=== PATIENT | male | born 1985 ===

== ENCOUNTER 2024-01-03 23:11 | Inpatient (IN) | payer OTHER, SELFPAY ==
--- NOTE | ~2024-01-03 | CT_ITS ---
EXAMINATION: CT ABDOMEN AND PELVIS WITH CONTRAST CLINICAL INFORMATION: Abdominal pain, diarrhea, fevers COMPARISON: None available. TECHNIQUE: Multidetector volumetric images were obtained from the superior aspect of the liver through the pubic symphysis following administration 85 mL of Omnipaque 350 intravenous contrast. Sagittal and coronal reformatted images were obtained on the technologist's workstation. Oral contrast: No This CT examination was performed using dose optimization techniques as appropriate, variously including the following: *Automated exposure control *Adjustment of mA and/or kV according to patient size (this includes techniques or standardized protocols for targeted exams where dose is matched to indication/reason for exam; i.e. extremities or head) *Use of iterative reconstruction technique DLP: 456 mGy-cm FINDINGS: LUNG BASES: Scattered subpleural curvilinear opacities which may reflect atelectasis. LIVER, GALLBLADDER, AND BILIARY TREE: The liver is normal in size, shape, and attenuation. No focal hepatic lesion or biliary ductal dilatation is present. Gallbladder appears partially distended and is otherwise unremarkable. PANCREAS: Unremarkable. SPLEEN: Unremarkable. ADRENAL GLANDS: Unremarkable. KIDNEYS AND URETERS: Bilateral nephrograms are symmetric. No hydronephrosis or obstructing calculus identified. BLADDER: Unremarkable. GASTROINTESTINAL TRACT: There are several mildly prominent fluid-filled loops of small bowel including the terminal ileum. Of note, the distalmost portion of the terminal ileum appears relatively collapsed and demonstrates mild mural prominence as seen on coronal image 34. This raises the possibility of mild inflammation with associated stricturing and associated developing obstruction. There is moderate distention of the colon with gas and stool. Limited evaluation for wall thickening in the sigmoid colon and rectum due to luminal collapse. The appendix is unremarkable. No free fluid or free air is seen. ABDOMINAL WALL: No significant hernia is appreciated. LYMPH NODES: Scattered mesenteric and retroperitoneal subcentimeter lymph nodes are present, without significant enlargement by size criteria. VASCULAR: Unremarkable. PELVIC VISCERA: Unremarkable. OSSEOUS STRUCTURES: Unremarkable. CT/CT abdomen pelvis w IV con IMPRESSION: 1. Several mildly prominent fluid-filled loops of small bowel, including the terminal ileum. Distalmost portion of the terminal ileum appears relatively collapsed and demonstrates mural prominence, raising the possibility of mild inflammation with associated stricturing and developing small bowel obstruction. 2. Moderate distention of the colon with gas and stool. Of note, there is limited evaluation for wall thickening in the sigmoid colon and rectum due to luminal collapse.
[2024-01-03 23:57] VITALS: BP 129/88; PULSE 75; RESP 18; TEMP 36.6; O2SAT 96; BMI 25.5
[2024-01-04] VITALS (8 sets, daily range): BP systolic 116–134; BP diastolic 73–92; PULSE 66–90; RESP 15–18; TEMP 36.1–36.6; O2SAT 95–98
--- NOTE | 2024-01-04 01:04 | ED.ABDPAIN ---
HPI - Abdominal Pain General Chief Complaint: Abdominal Pain Stated Complaint: GI Upset Time Seen by Provider: 01/04/24 00:46 Source: patient Mode of arrival: ambulatory Limitations: no limitations History of Present Illness HPI narrative: 38 yo male with no sig PMH had colonoscopy about 2 years ago for polyps, is on prep to prevent HIV but negative, notes 3 weeks ago he at a taco from [facility] and ever since has had abdominal pain and diarrhea along with fevers last Saturday. He states he feels weak and dehydrated and every time he eats he has stool. He denies bloody stools. He has no fam hx of Crohns or UC. He has not traveled or been on any antibiotics MD elicited complaint: abdominal pain Pertinent past history: none Onset (ago): week(s) (3) Pain Consistency: constant Location: diffuse Severity: severe Quality: cramping Radiation: none Migration to: no migration Exacerbating factors: eating Relieving factors: nothing Context: possible food poisoning Associated symptoms: nausea, diarrhea and chills Related Data Allergies Allergy/AdvReac Type Severity Reaction Status Date / Time No Known Allergies Allergy Verified 01/03/24 23:56 Review of Systems Review of Systems Constitutional : No Weight loss, No Fever, pos Chills ENT/Mouth : No sore throat, No Rhinorrhea Eyes: No Swelling, No Redness Cardiovascular : No Chest Pain, No SOB, NoEdema Respiratory : No Cough, No Sputum, No Wheezing Gastrointestinal : Positive Nausea, Positive Vomiting, positive Diarrhea, positive abdominal Pain, No Hematochezia, No Melena Genitourinary : No Dysuria, No Urinary Frequency, No Hematuria, No Urgency Musculoskeletal : No joint pain, No Myalgias, No Joint Swelling Skin : No Skin Lesions, No rash Neuro : No Weakness, No Numbness, No Dizziness, No Headache Psych : No Anxiety/Panic, No Depression All other systems reviewed and are negative. [facility] Past Medical History Attestation statement: The following information was validated with the patient. Source: old records reviewed Medical History (Updated 01/04/24 @ 04:03 by Svitlana Hassan DO) No pertinent past medical history Social History Social History (Updated 01/04/24 @ 01:43 by Svitlana Hassan DO) Alcohol intake: never Patient Tobacco Use Status: Never used Tobacco Smoked in Last 30 Days: No Use of substances other than those prescribed or required for medical reasons: No Advance Directives: No Advance Directives Information Provided: No Physical Exam ED Vital Signs: Vital Signs - 24 hr 01/03/24 23:57 01/04/24 02:24 01/04/24 02:57 Temperature 97.8 F 97.8 F Pulse Rate 75 78 Respiratory Rate 18 16 17 Blood Pressure 129/88 130/83 Pulse Oximetry 96 98 Oxygen Delivery Method Room Air Room Air BMI result Body Mass Index 25.5 Appearance: Alert. Oriented X3. No acute distress. Eyes: Pupils equal, round and reactive to light. ENT: Pharynx normal. Neck: Normal inspection. Neck supple. CVS: Normal heart rate and rhythm. Pulses normal. Respiratory: No respiratory distress. Breath sounds normal. Abdomen: Soft and moderate diffuse ttp no rebound or guarding Skin: Skin warm and dry. Normal skin color. Normal skin turgor. Extremities: No lower extremity edema. No calf ttp Neuro: Oriented X 3. No motor deficit. No sensory deficit. Course Course Course Narrative: improvement with IV morphine but still having pain repeat dose ordered Medical Decision Making Medical Decision Making [facility] Narrative: 38 yo male with no sig PMH here with c/o diarrhea n/v and abdominal pain for 3 weeks since eating [employer] at this time will obtain basic labs, infl markers and CT scan for colitis - he denies being immunocompromised. He has no fam hx of IBD. IVF, IV morphine for pain, CT scan for workup. Differential Diagnosis Differential Diagnoses: The differential diagnosis associated with the presentation includes colitis, constipation Admission/Observation Consideration of admission/observation: Escalation of care including admission/observation considered will admit given CT scan and abnormal findings Consult Healthcare Provider Management of the patient was discussed with: Hospitalist (will admit) and Client Resource Specialist (Dr. Coronado) Dr. Coronado recommends GI and medical admission - no indication for surgery Dr. Wilson aware will admit Will start on ceftriaxone and flagyl Lab Data [facility] Lab Attestation statement: I reviewed the patient's lab results. 01/04/24 01:03 01/04/24 01:03 Labs: Lab Results 01/04/24 Range/Units 01:03 WBC 10.5 (4.8-10.8) X10*3/uL RBC 5.30 (4.60-5.80) X10*6/uL Hgb 15.1 (14.0-18.0) g/dl Hct 42.6 (42.0-52.0) % MCV 80.4 (80.0-98.0) fL MCH 28.5 (27.0-33.0) pg MCHC 35.4 (31.0-36.0) g/dl RDW 12.5 (11.0-16.0) % Plt Count 297 (160-400) X10*3/uL MPV 9.9 (9.4-12.4) fL Immature Gran % (Auto) 0.3 (0.0-0.4) % Neut % (Auto) 67.7 (45-73) % Lymph % (Auto) 21.6 (20-40) % [place] % (Auto) 6.9 (2-11) % Eos % (Auto) 2.7 (0-4) % Baso % (Auto) 0.8 (0-2) % Lymph # (Auto) 2.3 (1.2-4.9) X10*3/uL [place] # (Auto) 0.7 (0.1-1.2) X10*3/uL Eos # (Auto) 0.3 (0.0-0.4) X10*3/uL Baso # (Auto) 0.1 (0.0-0.2) X10*3/uL Abs Immat Gran (auto) 0.03 (0.00-0.03) X10*3/uL Absolute Neuts (auto) 7.1 (2.0-8.3) x10*3/uL Absolute Nucleated RBC 0.000 (0.0-0.012) X10*3/uL Nucleated RBC % (auto) 0.0 (0.0-0.2) /100WBC ESR 12 (0-15) MM/HR Sodium 141 (135-145) mmol/L Potassium 3.4 (3.3-5.1) mmol/L Chloride 104 (96-108) mmol/L Carbon Dioxide 27 (22-29) mmol/L Anion Gap 13 (12-20) BUN 16 (9-16) mg/dL Creatinine 0.80 (0.5-1.4) mg/dL Estim Creat Clear Calc 105.8 Estimated GFR > 60 Random Glucose 89 (60-115) mg/dL Calcium 9.4 (8.4-10.2) mg/dL Total Bilirubin 0.4 (0.0-1.0) mg/dL AST 15 (5-37) U/L ALT 16 (0-40) U/L Alkaline Phosphatase 74 (39-117) U/L C-Reactive Protein 2.32 H (< or = 0.50) mg/dL Total Protein 7.8 (6.5-8.0) g/dL Albumin 4.4 (3.5-5.0) g/dL Lipase 53 (8-78) U/L Independent Interpretation I performed an independent interpretation of an: CT Scan (inflammatory findings and partial start of bowel obstruction) Radiology Impression Discussion of test interpretation with radiology: I have reviewed the radiologist's reading. Medications Administered Discontinued Medications Generic Name Dose Route Start Last Admin Trade Name Freq PRN Reason Stop Dose Admin Sodium Chloride 1,000 mls @ 999 mls/hr 01/04/24 01:15 01/04/24 02:25 Ns IV 01/04/24 02:15 999 mls/hr .Q1H1M AZALEA Administration Iohexol 85 ml 01/04/24 02:46 01/04/24 02:46 Iohexol 350 Mg/Ml 100 Ml Infus..Btl IV 01/04/24 02:47 85 ml ONCE ONE Administration Morphine Sulfate 4 mg 01/04/24 01:11 01/04/24 02:24 Morphine Sulfate 4 Mg/Ml Cartridge IVPUSH 01/04/24 01:12 4 mg ONCE ONE Administration Protocol Ondansetron HCl 4 mg 01/04/24 01:11 01/04/24 02:24 Ondansetron Hcl 4 Mg/2 Ml Vial IVPUSH 01/04/24 01:12 4 mg ONCE ONE Administration Critical Care Time Critical Care Time Critical Care Time: Yes Total Critical Care Time: 45 Attestation: repeat IV morphine for pain with some improvement, IVF, medical consult I attest to this time spent taking care of the patient Discharge Plan Discharge Clinical Impression: Ileitis Abdominal pain Qualifiers: Abdominal location: generalized Qualified Code(s): R10.84 - Generalized abdominal pain Patient Disposition: Admitted As Inpatient
[2024-01-04 01:07] LABS: MANUAL DIFF FLAG NO
[2024-01-04 01:13] LABS: Basophils Absolute Auto 0.1 X10*3/uL (0.0-0.2); Basophils Percent Auto 0.8 % (0-2); Eosinophils Absolute Auto 0.3 X10*3/uL (0.0-0.4); Eosinophils Percent Auto 2.7 % (0-4); Hematocrit 42.6 % (42.0-52.0); Hemoglobin 15.1 g/dl (14.0-18.0); Imm Gran Abs Auto 0.03 X10*3/uL (0.00-0.03); Imm Gran Pct Auto 0.3 % (0.0-0.4); Lymphocytes Absolute Auto 2.3 X10*3/uL (1.2-4.9); Lymphocytes Percent Auto 21.6 % (20-40); Mean Corpuscular HGB Conc 35.4 g/dl (31.0-36.0); Mean Corpuscular Hemoglobin 28.5 pg (27.0-33.0); Mean Corpuscular Volume 80.4 fL (80.0-98.0); Mean Platelet Volume 9.9 fL (9.4-12.4); Monocytes Absolute Auto 0.7 X10*3/uL (0.1-1.2); Monocytes Percent Auto 6.9 % (2-11); Neutrophils Absolute Auto 7.1 x10*3/uL (2.0-8.3); Neutrophils Percent Auto 67.7 % (45-73); Platelet Count 297 X10*3/uL (160-400); Red Cell Distribution Width 12.5 % (11.0-16.0); White Blood Count 10.5 X10*3/uL (4.8-10.8)
[2024-01-04 01:26] LABS: Alanine Aminotransferase 16 U/L (0-40); Albumin Level 4.4 g/dL (3.5-5.0); Alkaline Phosphatase 74 U/L (39-117); Anion Gap 13 (12-20); Aspartate Amino Transferase 15 U/L (5-37); Bilirubin Total 0.4 mg/dL (0.0-1.0); Blood Urea Nitrogen 16 mg/dL (9-16); C Reactive Protein 2.32 mg/dL (< or = 0.50); Calcium 9.4 mg/dL (8.4-10.2); Carbon Dioxide 27 mmol/L (22-29); Chloride 104 mmol/L (96-108); Creatinine Clr Calc Pharmacy 105.8; Estimated Glomerular Filt Rate > 60; Glucose Random 89 mg/dL (60-115); Lipase 53 U/L (8-78); Potassium 3.4 mmol/L (3.3-5.1); Sodium 141 mmol/L (135-145); Total Protein 7.8 g/dL (6.5-8.0)
[2024-01-04 01:54] LABS: Erythrocyte Sedimentation Rate 12 MM/HR (0-15)
[2024-01-04] MEDS: Morphine Sulfate 4 MG/ML CARTRIDGE IVPUSH ×2 (02:24→04:25)
[2024-01-04] MEDS: ondansetron HCL 4 MG/2 ML VIAL IVPUSH (02:24)
[2024-01-04] MEDS: 0.9 % Sodium Chloride 1,000 ML 999 ML IV (02:25)
[2024-01-04] MEDS: iohexoL 350 MG/ML 100 ML INFUS..BTL 85 ML IV (02:46)
[2024-01-04] MEDS: Ketorolac Tromethamine 15 MG/ML VIAL IVPUSH (04:25)
[2024-01-04] MEDS: 0.9 % Sodium Chloride 1,000 ML 125 ML IVCONT ×3 (04:30→22:47)
[2024-01-04] MEDS: cefTRIAXone sodium 1 GM in 0.9 % Sodium Chloride 50 ML IV (04:36)
--- NOTE | 2024-01-04 04:40 | PM.IMHP ---
History of Present Illness Date of Service: 01/04/24 Chief Complaint: Abdominal pain and diarrhea This is a 38-year-old male with pertinent history of asthma not on home oxygen who presents to the emergency department evaluation of abdominal discomfort and diarrhea. Patient states his symptoms started 3 weeks prior to presentation. He had a taco from [employer] and his symptoms started since. Patient has been having upper/left-sided abdominal discomfort, nonradiating, constant and without any relieving factors. He is also having nonbloody diarrhea every time he eats that has been ongoing for the last 3 weeks. No history of similar symptoms in the past. No family history of ulcerative colitis or Crohn's disease. Did have 1 episode of nausea and nonbloody emesis 1 day prior to presentation. Patient states that about a week ago he felt febrile, did not take his temperature. No chest discomfort, palpitations, shortness of breath, changes in urinary habits. In the emergency department, imaging with mild inflammation with stricturing in the terminal ileum Review of Systems Constitutional: Constitutional: Reports lethargy, Reports malaise and Reports weakness Cardiovascular: Cardiovascular: Reports no additional cardiovascular complaints Respiratory: Respiratory: Reports no additional respiratory complaints Gastrointestinal: Gastrointestinal: Reports abdominal pain, Reports diarrhea, Reports nausea and Reports vomiting Genitourinary: Genitourinary: Reports no additional male genitourinary complaints Neurologic: Reports weakness [facility] Medical History Asthma Pertinent family history: No family history of Crohn's disease or ulcerative colitis Social History Alcohol intake: never Patient Tobacco Use Status: Never used Tobacco Smoked in Last 30 Days: No Use of substances other than those prescribed or required for medical reasons: No Advance Directives: No Advance Directives Information Provided: No Meds Allergies Allergy/AdvReac Type Severity Reaction Status Date / Time No Known Allergies Allergy Verified 01/03/24 23:56 Active Medications: Current Medications Acetaminophen (Acetaminophen 325 Mg Tablet) 650 mg PO Q6H PRN PRN Reason: Pain, Mild (Pain Scale 1-3) Enoxaparin Sodium (Enoxaparin Sodium 40 Mg/0.4 Ml Syringe) 40 mg SUBCUT Q24H AZALEA Sodium Chloride (Ns) 1,000 mls @ 125 mls/hr IVCONT .Q8H [facility] Last Admin: 01/04/24 04:30 Dose: 125 mls/hr Ceftriaxone Sodium 1 gm/ (Sodium Chloride) 50 mls @ 100 mls/hr IV ONCE ONE Stop: 01/04/24 04:48 Last Admin: 01/04/24 04:36 Dose: 100 mls/hr Metronidazole (Flagyl) 500 mg in 100 mls @ 100 mls/hr IV ONCE ONE Stop: 01/04/24 05:18 Melatonin (Melatonin 3 Mg Tablet) 6 mg PO BEDTIME PRN PRN Reason: Insomnia Morphine Sulfate (Morphine Sulfate 4 Mg/Ml Cartridge) 2 mg IVPUSH Q4H PRN; Protocol PRN Reason: Pain, Severe (Pain Scale 7-10) Ondansetron HCl (Ondansetron Hcl 4 Mg/2 Ml Vial) 4 mg IVPUSH Q8H PRN PRN Reason: Nausea and Vomiting Sodium Chloride (0.9 % Sodium Chloride Flush 3 Ml Syringe) 3 ml IVFLUSH QSHIFT [facility] Physical Exam Vital Signs and Narrative: Vital Signs: Last Vital Signs Temp 97.8 F 01/04/24 02:57 Pulse 78 01/04/24 02:57 Resp 16 01/04/24 04:25 BP 130/83 01/04/24 02:57 Pulse Ox 98 01/04/24 02:57 O2 Del Method Room Air 01/04/24 02:57 BMI result Body Mass Index 25.5 Middle-aged male lying in bed in mild distress Neck supple, no JVD Regular rate and rhythm, S1-S2 heard Regular breath sounds bilaterally, no wheezing or crackles appreciated Abdomen with generalized tenderness, no guarding, no rigidity, no rebound tenderness Patient is awake, alert and oriented to self, place, time and person ; no focal motor deficit Psych: Normal mood No pedal edema Results Labs 01/04/24 01:03 01/04/24 01:03 Labs: Laboratory Results - last 24 hr 01/04/24 01:03 MCV 80.4 MCH 28.5 MCHC 35.4 RDW 12.5 Plt Count 297 MPV 9.9 Immature Gran % (Auto) 0.3 Neut % (Auto) 67.7 Lymph % (Auto) 21.6 [place] % (Auto) 6.9 Eos % (Auto) 2.7 Baso % (Auto) 0.8 Lymph # (Auto) 2.3 [place] # (Auto) 0.7 Eos # (Auto) 0.3 Baso # (Auto) 0.1 Abs Immat Gran (auto) 0.03 Absolute Neuts (auto) 7.1 Absolute Nucleated RBC 0.000 Nucleated RBC % (auto) 0.0 ESR 12 Anion Gap 13 Estim Creat Clear Calc 105.8 Estimated GFR > 60 Random Glucose 89 Calcium 9.4 Total Bilirubin 0.4 AST 15 ALT 16 Alkaline Phosphatase 74 C-Reactive Protein 2.32 H Total Protein 7.8 Albumin 4.4 Lipase 53 Imaging Radiologist's Impressions: Impressions Abdomen/Pelvis CT 01/04/24 02:50 IMPRESSION: 1. Several mildly prominent fluid-filled loops of small bowel, including the terminal ileum. Distalmost portion of the terminal ileum appears relatively collapsed and demonstrates mural prominence, raising the possibility of mild inflammation with associated stricturing and developing small bowel obstruction. 2. Moderate distention of the colon with gas and stool. Of note, there is limited evaluation for wall thickening in the sigmoid colon and rectum due to luminal collapse. Assessment and Plan (1) Abdominal pain: Qualifiers: Abdominal location: generalized Qualified Code(s): R10.84 - Generalized abdominal pain Status: Acute (2) Diarrhea: Status: Acute Plan This is a 38-year-old male with pertinent history of asthma not on home oxygen who presents to the emergency department evaluation of abdominal discomfort and diarrhea. #. Subacute diarrhea with abdominal pain: Imaging with mild inflammation and stricturing of the terminal ileum. General surgery was consulted from the ER, no concern for obstruction. Stool studies pending. Clear liquid diet and advance as tolerated. Consulting Gastroenterology, appreciate assistance. Patient received ceftriaxone and Flagyl in the ER. He has not febrile and is without leukocytosis, defer further antibiotics. IV opioids p.r.n. for analgesia #. Asthma: No exacerbation during admission. Continue home inhalers Med rec pending DVT prophylaxis: Lovenox Full code Admit as inpatient and will require two night minimum hospital stay for evaluation of subacute diarrhea and abdominal pain (as above), which is not possible in a lesser acute setting. Specialist consult pending Quality Stroke Does the patient have a stroke diagnosis?: No VTE Prior VTE?: No VTE Risk Level:: Medical - moderate - high VTE Device Contraindication: Treatment Not Indicated VTE Drug Contraindication: N/A - Med Ordered
[2024-01-04 05:08] LABS: MANUAL DIFF FLAG NO
[2024-01-04 05:09] LABS: Basophils Absolute Auto 0.1 X10*3/uL (0.0-0.2); Basophils Percent Auto 0.5 % (0-2); Eosinophils Absolute Auto 0.2 X10*3/uL (0.0-0.4); Eosinophils Percent Auto 1.9 % (0-4); Hematocrit 38.7 % (42.0-52.0); Hemoglobin 13.7 g/dl (14.0-18.0); Imm Gran Abs Auto 0.04 X10*3/uL (0.00-0.03); Imm Gran Pct Auto 0.4 % (0.0-0.4); Lymphocytes Absolute Auto 1.9 X10*3/uL (1.2-4.9); Lymphocytes Percent Auto 20.5 % (20-40); Mean Corpuscular HGB Conc 35.4 g/dl (31.0-36.0); Mean Corpuscular Hemoglobin 28.5 pg (27.0-33.0); Mean Corpuscular Volume 80.5 fL (80.0-98.0); Mean Platelet Volume 9.9 fL (9.4-12.4); Monocytes Absolute Auto 0.6 X10*3/uL (0.1-1.2); Monocytes Percent Auto 6.8 % (2-11); Neutrophils Absolute Auto 6.6 x10*3/uL (2.0-8.3); Neutrophils Percent Auto 69.9 % (45-73); Platelet Count 239 X10*3/uL (160-400); Red Blood Count 4.81 X10*6/uL (4.60-5.80); Red Cell Distribution Width 12.4 % (11.0-16.0); White Blood Count 9.5 X10*3/uL (4.8-10.8)
[2024-01-04] MEDS: metroNIDAZOLE/NS 500 MG/100 ML PIGGYBACK 100 MG IV (05:15)
[2024-01-04 05:26] LABS: Anion Gap 13 (12-20); Blood Urea Nitrogen 14 mg/dL (9-16); Calcium 8.3 mg/dL (8.4-10.2); Carbon Dioxide 24 mmol/L (22-29); Chloride 107 mmol/L (96-108); Creatinine Clr Calc Pharmacy 105.8; Estimated Glomerular Filt Rate > 60; Glucose Random 94 mg/dL (60-115); Potassium 3.6 mmol/L (3.3-5.1); Sodium 140 mmol/L (135-145)
--- NOTE | 2024-01-04 05:54 | PC.NURSE ---
Pt A&Ox3, reports 7/10 upper ABD pain, vomiting and diarrhea x 3 weeks after eating [employer]. Pt reports last BM was [employer], no vomiting while here. ABD tender to touch to LUQ, + bowel sounds x 4. Pt ambulated independently with steady gait to BR. Pt tolerating PO fluids. Reports effectiveness to meds given per JAN. Report complete. Pt will be transported to room 380. Pt aware of plan.
--- NOTE | 2024-01-04 06:05 | PC.NURSE ---
Med rec done, Pt able to verbalize home meds.
--- NOTE | 2024-01-04 07:17 | PHA.MEDREC ---
Pharmacy Consult ? Medication Reconciliation Pharmacy has completed the medication reconciliation.
--- NOTE | 2024-01-04 08:58 | P.PNIM_ITS ---
Subjective Subjective Date of Service: 01/04/24 Interval History: about the same as yesterday Physical Exam 2 Vital Signs: Vital Signs: Last Vital Signs Temp 97 F 01/04/24 07:54 Pulse 67 01/04/24 07:54 Resp 16 01/04/24 07:54 BP 121/73 01/04/24 07:54 Pulse Ox 98 01/04/24 07:54 O2 Del Method Room Air 01/04/24 07:54 BMI result Body Mass Index 25.5 General: AO X 3, no acute distress Resp: CTA bilateral, no accessory muscles used CVS: S1,S2,RRR GI: soft, rlq tender, non distended Neuro: motor grossly intact, alert Psych: appropriate affect, appropriate insight Objective Data Active Medications Acetaminophen (Acetaminophen 325 Mg Tablet) 650 mg PO Q6H PRN PRN Reason: Pain, Mild (Pain Scale 1-3) Enoxaparin Sodium (Enoxaparin Sodium 40 Mg/0.4 Ml Syringe) 40 mg SUBCUT Q24H [facility] Last Admin: 01/04/24 05:22 Dose: Not Given Documented By: SUYAPA Non-Admin Reason: Patient Refused Fluticasone/Vilanterol (Fluticasone/Vilanterol 100/25 Blst.W.Dev) 1 puff INHALE RDAILY [facility] Sodium Chloride (Ns) 1,000 mls @ 125 mls/hr IVCONT .Q8H [facility] Last Admin: 01/04/24 04:30 Dose: 125 mls/hr Documented By: SUYAPA Melatonin (Melatonin 3 Mg Tablet) 6 mg PO BEDTIME PRN PRN Reason: Insomnia Morphine Sulfate (Morphine Sulfate 4 Mg/Ml Cartridge) 2 mg IVPUSH Q4H PRN; Protocol PRN Reason: Pain, Severe (Pain Scale 7-10) Ondansetron HCl (Ondansetron Hcl 4 Mg/2 Ml Vial) 4 mg IVPUSH Q8H PRN PRN Reason: Nausea and Vomiting Sodium Chloride (0.9 % Sodium Chloride Flush 3 Ml Syringe) 3 ml IVFLUSH QSHIFT [facility] Last Admin: 01/04/24 08:54 Dose: Not Given Documented By: TRESSA Non-Admin Reason: IV Running Labs 01/04/24 05:03 01/04/24 05:03 Labs: Laboratory Results - last 24 hr 01/04/24 01/04/24 01:03 05:03 MCV 80.4 80.5 MCH 28.5 28.5 MCHC 35.4 35.4 RDW 12.5 12.4 Plt Count 297 239 MPV 9.9 9.9 Immature Gran % (Auto) 0.3 0.4 Neut % (Auto) 67.7 69.9 Lymph % (Auto) 21.6 20.5 Person % (Auto) 6.9 6.8 Eos % (Auto) 2.7 1.9 Baso % (Auto) 0.8 0.5 Lymph # (Auto) 2.3 1.9 Person # (Auto) 0.7 0.6 Eos # (Auto) 0.3 0.2 Baso # (Auto) 0.1 0.1 Abs Immat Gran (auto) 0.03 0.04 H Absolute Neuts (auto) 7.1 6.6 Absolute Nucleated RBC 0.000 0.000 Nucleated RBC % (auto) 0.0 0.0 ESR 12 Anion Gap 13 13 Estim Creat Clear Calc 105.8 105.8 Estimated GFR > 60 > 60 Random Glucose 89 94 Calcium 9.4 8.3 L D Total Bilirubin 0.4 AST 15 ALT 16 Alkaline Phosphatase 74 C-Reactive Protein 2.32 H Total Protein 7.8 Albumin 4.4 Lipase 53 Assessment and Plan (1) Ileitis: Status: Acute Plan 38M PMH mild persistent asthma presented with abdominal pain, found to have ileitis acute ileitis infections vs inflammatory ivf, clears follow up stool pcr pain control gi eval mild persistent asthma stable continue laba/ics dvt prophylaxis - Lovenox full code reason for continued hospitalization:not tolerating solids Quality Stroke Does the patient have a stroke diagnosis?: No VTE Prior VTE?: No VTE Risk Level:: Medical - moderate - high VTE Device Contraindication: Treatment Not Indicated VTE Drug Contraindication: N/A - Med Ordered
--- NOTE | 2024-01-04 09:38 | P.CNGI_ITS ---
History of Present Illness Data of Consult Service Date: 01/04/24 Requesting physician: Kumar Wilson Primary Care Provider: Unknown Physician HPI Reason for consult: Abd pain, diarrhea This is a 38-year-old gentleman with no significant past medical history who is in the hospital for abdominal pain, nausea, vomiting and diarrhea. Patient reports that around 3 weeks ago he started having abdominal pain and diarrhea which she attributed to having food from outside. This dissipated within a few days only to recur again 2 weeks ago and since then has progressively worsened. He reports diffuse abdominal cramping and discomfort that is associated with at least 5-6 watery bowel movements in a day associated with incontinence and urgency. No blood in stool. Does have nighttime symptoms. In the last 2 days has also noticed tenesmus. A day before admission, he also started noticing more nausea and has not been able to take anything p.o. due to vomiting since yesterday evening. He has not been able to pass any bowel movement for a day and a half and also has not passed any gas since coming to the hospital. No fam hx of IBD or CRC. Does not smoke or drink. NO sick contacts. Vitals have been stable, he has remained afebrile. Labs are significant for normal leukocytosis. Chem 7 with normal kidney function. Elevated CRP to 2.3. Stool studies are pending. He underwent a CT abdomen and pelvis with IV contrast that shows distal terminal ileum wall thickening with proximal dilation. Review of Systems 2 Review of Systems: Yes all other systems are reviewed and are negative PMFSH Past Medical History Medical History Asthma Social History Social History Household Members: None Housing: Apartment Alcohol intake: never Patient Tobacco Use Status: Never used Tobacco Meds Allergies Allergy/AdvReac Type Severity Reaction Status Date / Time No Known Allergies Allergy Verified 01/03/24 23:56 Active Medications: Current Medications Acetaminophen (Acetaminophen 325 Mg Tablet) 650 mg PO Q6H PRN PRN Reason: Pain, Mild (Pain Scale 1-3) Enoxaparin Sodium (Enoxaparin Sodium 40 Mg/0.4 Ml Syringe) 40 mg SUBCUT Q24H [facility] Last Admin: 01/04/24 05:22 Dose: Not Given Fluticasone/Vilanterol (Fluticasone/Vilanterol 100/25 Blst.W.Dev) 1 puff INHALE RDAILY [facility] Sodium Chloride (Ns) 1,000 mls @ 125 mls/hr IVCONT .Q8H [facility] Last Admin: 01/04/24 04:30 Dose: 125 mls/hr Melatonin (Melatonin 3 Mg Tablet) 6 mg PO BEDTIME PRN PRN Reason: Insomnia Morphine Sulfate (Morphine Sulfate 4 Mg/Ml Cartridge) 2 mg IVPUSH Q4H PRN; Protocol PRN Reason: Pain, Severe (Pain Scale 7-10) Ondansetron HCl (Ondansetron Hcl 4 Mg/2 Ml Vial) 4 mg IVPUSH Q8H PRN PRN Reason: Nausea and Vomiting Sodium Chloride (0.9 % Sodium Chloride Flush 3 Ml Syringe) 3 ml IVFLUSH QSHIFT [facility] Last Admin: 01/04/24 08:54 Dose: Not Given Home Medications Medication Instructions Recorded Confirmed Last Taken Type fluticasone 250 mcg-salmeterol 50 1 ea inhalation BID 01/04/24 01/04/24 Unknown History mcg/dose blistr powdr for inhalation (Advair Diskus) Physical Exam 2 Vital Signs: Vital Signs: Last Vital Signs Temp 97 F 01/04/24 07:54 Pulse 67 01/04/24 07:54 Resp 16 01/04/24 07:54 BP 121/73 01/04/24 07:54 Pulse Ox 98 01/04/24 07:54 O2 Del Method Room Air 01/04/24 07:54 BMI result Body Mass Index 25.5 Gen appear: Sick appearing HEENT: nonicteric, no cervical lymphadenopathy Chest: CTA CVS: Regular S1/S2 Abd: soft, diffusely tender with guarding, mildly distended Ext: no peripheral edema Neuro: A/Ox3, noted to move all extremities spontaneously Psych: interacting appropriately Results Labs 01/04/24 05:03 01/04/24 05:03 Labs: Short CBC 01/04/24 01/04/24 Range/Units 01:03 05:03 WBC 10.5 9.5 (4.8-10.8) X10*3/uL Hgb 15.1 13.7 L (14.0-18.0) g/dl Hct 42.6 38.7 L (42.0-52.0) % Plt Count 297 239 (160-400) X10*3/uL BMP 01/04/24 01/04/24 01:03 05:03 Sodium 141 140 Potassium 3.4 3.6 Chloride 104 107 Carbon Dioxide 27 24 BUN 16 14 Creatinine 0.80 0.80 Calcium 9.4 8.3 L D Liver Function 01/04/24 Range/Units 01:03 Total Bilirubin 0.4 (0.0-1.0) mg/dL AST 15 (5-37) U/L ALT 16 (0-40) U/L Alkaline Phosphatase 74 (39-117) U/L Albumin 4.4 (3.5-5.0) g/dL Assessment and Plan (1) Abdominal pain: Qualifiers: Abdominal location: generalized Qualified Code(s): R10.84 - Generalized abdominal pain Status: Acute (2) Ileitis: Status: Acute (3) Diarrhea: Status: Acute Plan Ddx include infectious enterocolitis such as Yersenia which in fact does have a subacute illness course, inflammatory such as crohns, low suspicion for neoplastic stricture given age. Does not take NSAIDs to suspect nsaid related stricturing. Recommendations: -Resume Abx - would favor fluoroquinolone based antibiotic regimen to also empirically cover Yersinia -IV fluids -bowel rest -stool studies and IBD panel ordered -hold off steroids for now Procedures Date of Service Date of Service: 01/04/24
[2024-01-04] MEDS: Fluticasone/Vilanterol 100/25 BLST.W.DEV 1 PUFF INHALE (11:23)
--- NOTE | 2024-01-04 13:34 | MHC.CM.PN ---
PT REPORTS HE LIVES ALONE AND IS INDEPENDENT WITH CARE PT HAS NO DME AND NO SERVICES, HE WORKS AND DRIVES PT DECLINES TO COMPLETE A HCP PCP AT [facility], ? CARLOS LANIER DCP: HOME NO SERVICES VIA SELF TRANSPORT
[2024-01-04] MEDS: Morphine Sulfate 4 MG/ML CARTRIDGE 2 MG IVPUSH (15:10)
[2024-01-04] MEDS: levoFLOXacin 500 MG TABLET PO (15:10)
[2024-01-05 04:00] VITALS: BP 120/71; PULSE 80; RESP 18; TEMP 36.7; O2SAT 96
[2024-01-05] MEDS: 0.9 % Sodium Chloride 1,000 ML 125 ML IVCONT (06:17)
[2024-01-05 07:09] LABS: Hematocrit 38.6 % (42.0-52.0); Hemoglobin 13.2 g/dl (14.0-18.0); Mean Corpuscular HGB Conc 34.2 g/dl (31.0-36.0); Mean Corpuscular Hemoglobin 28.1 pg (27.0-33.0); Mean Corpuscular Volume 82.3 fL (80.0-98.0); Mean Platelet Volume 10.2 fL (9.4-12.4); Platelet Count 241 X10*3/uL (160-400); Red Blood Count 4.69 X10*6/uL (4.60-5.80); Red Cell Distribution Width 12.6 % (11.0-16.0); White Blood Count 5.4 X10*3/uL (4.8-10.8)
[2024-01-05 07:19] LABS: Anion Gap 13 (12-20); Blood Urea Nitrogen 7 mg/dL (9-16); Carbon Dioxide 24 mmol/L (22-29); Chloride 109 mmol/L (96-108); Estimated Glomerular Filt Rate > 60; Glucose Fasting 83 mg/dL (60-99); Potassium 3.5 mmol/L (3.3-5.1); Sodium 142 mmol/L (135-145)
[2024-01-05] MEDS: Fluticasone/Vilanterol 100/25 BLST.W.DEV 1 PUFF INHALE (07:41)
[2024-01-05 07:42] VITALS: PULSE 80; RESP 18; O2SAT 96
[2024-01-05 07:45] VITALS: BP 119/71; PULSE 83; RESP 18; TEMP 36.6; O2SAT 95
--- NOTE | 2024-01-05 08:32 | P.PNGI_ITS ---
Subjective Subjective Date of Service: 01/05/24 Interval History: Seen at bedside. Doing better today. Reports significant improvement in his abdominal pain and now passing gas. Was able to tolerate his diet well. Critical Care Time (minutes): 0 Physical Exam 2 Vital Signs: Vital Signs: Last Vital Signs Temp 97.9 F 01/05/24 07:45 Pulse 83 01/05/24 07:45 Resp 18 01/05/24 07:45 BP 119/71 01/05/24 07:45 Pulse Ox 95 01/05/24 07:45 O2 Del Method Room Air 01/05/24 07:45 BMI result Body Mass Index 25.5 Gen appear: No acute distress Abd: Soft, very mildly tender, no guarding Objective Data Labs 01/05/24 05:57 01/05/24 05:57 Labs: Laboratory Results - last 24 hr 01/05/24 05:57 WBC 5.4 RBC 4.69 Hgb 13.2 L Hct 38.6 L MCV 82.3 MCH 28.1 MCHC 34.2 RDW 12.6 Plt Count 241 MPV 10.2 Absolute Nucleated RBC 0.000 Nucleated RBC % (auto) 0.0 Sodium 142 Potassium 3.5 Chloride 109 H Carbon Dioxide 24 Anion Gap 13 BUN 7 L Creatinine 0.90 Estim Creat Clear Calc 94.0 Estimated GFR > 60 Fasting Glucose 83 Calcium 8.0 L Procedures Date of Service Date of Service: 01/05/24 Progress Note: A&P Assessment and plan (1) Ileitis: Status: Acute (2) Abdominal pain: Status: Acute Plan Has had significant improvement with Abx alone - infectious vs inflammatory ileitis. - Cont to hold off steroids for now - Cont levaquin for total 7 days - can be transitioned to cipro on discharge as less risk of C Diff. - Will need outpatient colo in a few weeks - to be done as inpatient if clinical course does not progress as expected - Ok to advance diet as tolerated - Will arrange outpatient follow up Time Spent With Patient Time: Total time managing care of this patient today ____ minutes. Quality Stroke Does the patient have a stroke diagnosis?: No VTE Prior VTE?: No VTE Risk Level:: Medical - moderate - high VTE Device Contraindication: Treatment Not Indicated VTE Drug Contraindication: N/A - Med Ordered
--- NOTE | 2024-01-05 09:03 | P.PNIM_ITS ---
Subjective Subjective Date of Service: 01/05/24 Interval History: improving, wants to try solids Physical Exam 2 Vital Signs: Vital Signs: Last Vital Signs Temp 97.9 F 01/05/24 07:45 Pulse 83 01/05/24 07:45 Resp 18 01/05/24 07:45 BP 119/71 01/05/24 07:45 Pulse Ox 95 01/05/24 07:45 O2 Del Method Room Air 01/05/24 07:45 BMI result Body Mass Index 25.5 General: AO X 3, no acute distress Resp: CTA bilateral, no accessory muscles used CVS: S1,S2,RRR GI: soft, non tender, non distended Neuro: motor grossly intact, alert Psych: appropriate affect, appropriate insight Objective Data Active Medications Acetaminophen (Acetaminophen 325 Mg Tablet) 650 mg PO Q6H PRN PRN Reason: Pain, Mild (Pain Scale 1-3) Enoxaparin Sodium (Enoxaparin Sodium 40 Mg/0.4 Ml Syringe) 40 mg SUBCUT Q24H [facility] Last Admin: 01/05/24 06:06 Dose: Not Given Documented By: MAGDA Non-Admin Reason: Patient Refused Fluticasone/Vilanterol (Fluticasone/Vilanterol 100/25 Blst.W.Dev) 1 puff INHALE RDAILY [facility] Last Admin: 01/05/24 07:41 Dose: 1 puff Documented By: IRWNI Levofloxacin (Levofloxacin 500 Mg Tablet) 500 mg PO Q24H [facility] Last Admin: 01/04/24 15:10 Dose: 500 mg Documented By: TRESSA Melatonin (Melatonin 3 Mg Tablet) 6 mg PO BEDTIME PRN PRN Reason: Insomnia Morphine Sulfate (Morphine Sulfate 4 Mg/Ml Cartridge) 2 mg IVPUSH Q4H PRN; Protocol PRN Reason: Pain, Severe (Pain Scale 7-10) Last Admin: 01/04/24 15:10 Dose: 2 mg Documented By: TRESSA Ondansetron HCl (Ondansetron Hcl 4 Mg/2 Ml Vial) 4 mg IVPUSH Q8H PRN PRN Reason: Nausea and Vomiting Sodium Chloride (0.9 % Sodium Chloride Flush 3 Ml Syringe) 3 ml IVFLUSH QSHIFT [facility] Last Admin: 01/05/24 07:15 Dose: Not Given Documented By: NEGIN Non-Admin Reason: See Note Labs 01/05/24 05:57 01/05/24 05:57 Labs: Laboratory Results - last 24 hr 01/05/24 05:57 MCV 82.3 MCH 28.1 MCHC 34.2 RDW 12.6 Plt Count 241 MPV 10.2 Absolute Nucleated RBC 0.000 Nucleated RBC % (auto) 0.0 Anion Gap 13 Estim Creat Clear Calc 94.0 Estimated GFR > 60 Fasting Glucose 83 Calcium 8.0 L Assessment and Plan (1) Ileitis: Status: Acute Plan 38M PMH mild persistent asthma presented with abdominal pain, found to have ileitis acute ileitis infections vs inflammatory advance to solids follow up stool pcr pain control gi appreciated mild persistent asthma stable continue laba/ics dvt prophylaxis - Lovenox full code reason for continued hospitalization: awaiting tolerance of solids Quality Stroke Does the patient have a stroke diagnosis?: No VTE Prior VTE?: No VTE Risk Level:: Medical - moderate - high VTE Device Contraindication: Treatment Not Indicated VTE Drug Contraindication: N/A - Med Ordered
--- NOTE | 2024-01-05 12:07 | PM.DS ---
DS: Providers Provider Date of Service: 01/05/24 Date of admission: 01/04/24 04:37 Primary care physician: Unknown Physician Consults: 01/04/24 04:39 Consult to Gastroenterology Routine Consulting Provider: Sharon Marie Reason for consultation: subacute diarrhea DS: Diagnosis Discharge Diagnosis (1) Ileitis: Status: Acute DS: Summary Hospital Course Hospital Course: from initial hpi: 38-year-old male with pertinent history of asthma not on home oxygen who presents to the emergency department evaluation of abdominal discomfort and diarrhea. Patient states his symptoms started 3 weeks prior to presentation. He had a taco from [employer] and his symptoms started since. Patient has been having upper/left-sided abdominal discomfort, nonradiating, constant and without any relieving factors. He is also having nonbloody diarrhea every time he eats that has been ongoing for the last 3 weeks. No history of similar symptoms in the past. No family history of ulcerative colitis or Crohn's disease. Did have 1 episode of nausea and nonbloody emesis 1 day prior to presentation. Patient states that about a week ago he felt febrile, did not take his temperature. No chest discomfort, palpitations, shortness of breath, changes in urinary habits. In the emergency department, imaging with mild inflammation with stricturing in the terminal ileum hospital course: Patient was admitted for acute ileitis. Infectious versus inflammatory. He was treated with ceftriaxone and then transitioned to levofloxacin. Diarrhea resolved and was unable to obtain stool samples. Inflammatory workup was taken and is pending. Was seen by GI who recommended antibiotics and outpatient follow-up for colonoscopy. Patient's pain resolved and was able to tolerate solid food. For mild persistent asthma he remained stable on his inhaler. Time Attestation Discharge coordination time: Greater than 30 minutes Quality: Safe Use of Opioids Does Pt have an Active Cancer Diagnosis on the Problem List?: No Quality: Stroke Does the patient have a stroke diagnosis?: No Physical Exam Vital Signs: Vital Signs: Last Vital Signs Temp 97.9 F 01/05/24 07:45 Pulse 83 01/05/24 07:45 Resp 18 01/05/24 07:45 BP 119/71 01/05/24 07:45 Pulse Ox 95 01/05/24 07:45 O2 Del Method Room Air 01/05/24 07:45 BMI result Body Mass Index 25.5 General: AO X 3, no acute distress Resp: CTA bilateral, no accessory muscles used CVS: S1,S2,RRR GI: soft, non tender, non distended Neuro: motor grossly intact, alert Psych: appropriate affect, appropriate insight DS: Data Data Completed and Pending Labs on day of discharge: Laboratory Results - last 24 hr 01/05/24 05:57 WBC 5.4 RBC 4.69 Hgb 13.2 L Hct 38.6 L MCV 82.3 MCH 28.1 MCHC 34.2 RDW 12.6 Plt Count 241 MPV 10.2 Absolute Nucleated RBC 0.000 Nucleated RBC % (auto) 0.0 Sodium 142 Potassium 3.5 Chloride 109 H Carbon Dioxide 24 Anion Gap 13 BUN 7 L Creatinine 0.90 Estim Creat Clear Calc 94.0 Estimated GFR > 60 Fasting Glucose 83 Calcium 8.0 L Discharge Plan Discharge Anticipated Discharge Date/Time: 01/05/24 12:06 Patient Disposition: Home, Self-Care Discharge Diagnosis: ileitis Referrals: Physician,Unknown J [Primary Care Provider] - 1 Week Sharon Marie MD [Physician] - 1 Week Discharge Medications: New levofloxacin 500 mg Tablet 500 mg PO Q24H Qty: 5 0RF Continued fluticasone propion-salmeterol [Advair Diskus] 250-50 mcg/dose blister with device 1 ea inhalation BID Discharge Orders: Discharge Order (Routine); Ordered 01/05/24 Ordered By: Bird Rivas Diet: Advance to usual diet Activity on Discharge: As tolerated Stand Alone Forms: Patient Portal Discharge page Care Plan Goals: recovery Health Concerns: ileitis Plan of Treatment: 5 more days levaquin, follow up with gi Assessment: see above
--- NOTE | 2024-01-05 12:12 | MHC.CM.PN ---
PT WILL DC HOME TODAY VIA SELF TRANSPORT NO SERVICES INDICATED
== END 2024-01-05 13:03 | disposition home or self-care (01) | DRG 392 ==
LOC: HO.ED 01-04 04:03 → HO.EDOVER 01-04 04:43 → HO.S3 01-04 05:32
PROVIDERS: Internal Medicine; Admitting Provider Student in an Organized Health Care Education/Training Program; Emergency Provider Emergency Medicine; Visit Provider Internal Medicine
DX: K52.9 Noninfective gastroenteritis and colitis, unspecified (principal); J45.30 Mild persistent asthma, uncomplicated; Z79.51 Long term (current) use of inhaled steroids
CPT/HCPCS: 36415; 74177; 80048; 80053; 81479; 82397; 83520; 83690; 85025; 85027; 85652; 86140; 88346; 88350; 94640; 99285; J0696; J1836; J1885; J2270; J2405; Q9967

== ENCOUNTER → 2024-01-04 04:37 | Outpatient (BNV) | payer OTHER, SELFPAY | PROVIDERS: Admitting Provider Student in an Organized Health Care Education/Training Program; Emergency Provider Emergency Medicine; Visit Provider Student in an Organized Health Care Education/Training Program | DX: K52.9 Noninfective gastroenteritis and colitis, unspecified (principal) | CPT/HCPCS: 99222; 99239; 99499 ==

== ENCOUNTER → 2024-01-04 04:37 | Outpatient (BNV) | payer OTHER, SELFPAY | PROVIDERS: Admitting Provider Student in an Organized Health Care Education/Training Program; Emergency Provider Emergency Medicine; Visit Provider Internal Medicine | DX: K52.9 Noninfective gastroenteritis and colitis, unspecified (principal) | CPT/HCPCS: 99222; 99233 ==

== ENCOUNTER 2024-01-18 18:36 | Emergency (ER) | payer OTHER, SELFPAY ==
--- NOTE | 2024-01-18 19:03 | ED_ITS ---
HPI - Abdominal Pain General Chief Complaint: Abdominal Pain Stated Complaint: abd pain Time Seen by Provider: 01/18/24 20:42 Source: patient Mode of arrival: ambulatory History of Present Illness HPI narrative: 38-year-old male presents with epigastric discomfort without associated fever, chills, patient was treated 2 weeks ago for similar symptoms and was on a course of antibiotics. Patient states he has been having diarrhea. Patient also endorses that he has continued to eat fried food. Related Data Home Medications Medication Instructions Recorded Confirmed fluticasone 250 mcg-salmeterol 50 1 ea inhalation BID 01/04/24 01/04/24 mcg/dose blistr powdr for inhalation (Advair Diskus) Previous Rx's Medication Instructions Recorded levofloxacin 500 mg tablet 500 mg PO Q24H #5 tabs 01/05/24 omeprazole 40 mg capsule,delayed 40 mg PO DAILY #30 caps 01/18/24 release Allergies Allergy/AdvReac Type Severity Reaction Status Date / Time No Known Allergies Allergy Verified 01/18/24 19:13 Review of Systems Review of Systems Pertinent positives and negatives as stated in HPI PMFSH Past Medical History Source: nursing notes reviewed Medical History Asthma Social History Social History Household Members: None Housing: Apartment Alcohol intake: never Patient Tobacco Use Status: Never used Tobacco Advance Directives: No Advance Directives Information Provided: No service: No Physical Exam ED Vital Signs: Vital Signs - 24 hr 01/18/24 19:12 Temperature 97.6 F Pulse Rate 91 Respiratory Rate 16 Blood Pressure 128/95 H Pulse Oximetry 96 Oxygen Delivery Method Room Air BMI result Body Mass Index 26.0 VITAL SIGNS: Reviewed. GENERAL: Well developed, well nourished, in no acute distress. HEAD: Normocephalic/atraumatic EYES: PERRLA, EOMI LUNGS: Normal breath sounds. No adventitious sounds or accessory muscle use. SpO2<96> CARDIOVASCULAR: Regular rate and rhythm without noted murmurs ABDOMEN: Soft, mild discomfort on palpation in the epigastric area, non- distended with bowel sounds. MUSCULOSKELETAL: No tenderness, deformities, or effusions noted on gross inspection. EXTREMITIES: No cyanosis, clubbing or edema. SKIN: Inspection of the skin reveals no rashes NEUROLOGIC: Alert and oriented x 4. Strength and sensation to light touch were grossly intact x 4. Course Course Course Narrative: RME: 38 year-old M w/ PMHx asthma, ileitis, presenting to the ED c/o upper abdominal pain since last night (same pain as ileitis) described as sharp, intermittent. Patient recently discharged from our facility on 01/05 for ileitis. Admits to diarrhea. denies N/V, urinary sx Labs, UA ordered Full HPI, ROS and PE to be performed by primary ED provider. Medical Decision Making Medical Decision Making MDM Narrative: 38-year-old male with history and clinical presentation, DDX: Gastritis, GERD, pancreatitis, medication side effect from antibiotics I reviewed all investigations and hematologic indices are grossly within normal limits without any derangements. Chemistry indices are grossly within normal limits without derangements, lipase is within normal limits. Urinalysis is negative for UTI or hematuria. My interpretation is patient is suffering from gastritis and possible side effects from course of antibiotics. He was provided with a GI cocktail and Carafate with good improvement. He is otherwise discharged with a prescription for omeprazole. Differential Diagnosis Differential Diagnoses: The differential diagnosis associated with the presentation includes Please see the discussion above Admission/Observation Consideration of admission/observation: Escalation of care including admission/observation considered Please see the discussion above Lab Data [facility] Lab Attestation statement: I reviewed the patient's lab results. Please see the discussion above 01/18/24 19:23 01/18/24 19:23 Labs: Lab Results 01/18/24 Range/Units 19:23 WBC 5.9 (4.8-10.8) X10*3/uL RBC 5.30 (4.60-5.80) X10*6/uL Hgb 15.4 (14.0-18.0) g/dl Hct 44.3 (42.0-52.0) % MCV 83.6 (80.0-98.0) fL MCH 29.1 (27.0-33.0) pg MCHC 34.8 (31.0-36.0) g/dl RDW 13.1 (11.0-16.0) % Plt Count 286 (160-400) X10*3/uL MPV 10.2 (9.4-12.4) fL Immature Gran % (Auto) 0.3 (0.0-0.4) % Neut % (Auto) 65.5 (45-73) % Lymph % (Auto) 22.8 (20-40) % [facility] % (Auto) 8.6 (2-11) % Eos % (Auto) 2.0 (0-4) % Baso % (Auto) 0.8 (0-2) % Lymph # (Auto) 1.4 (1.2-4.9) X10*3/uL [facility] # (Auto) 0.5 (0.1-1.2) X10*3/uL Eos # (Auto) 0.1 (0.0-0.4) X10*3/uL Baso # (Auto) 0.1 (0.0-0.2) X10*3/uL Abs Immat Gran (auto) 0.02 (0.00-0.03) X10*3/uL Absolute Neuts (auto) 3.9 (2.0-8.3) x10*3/uL Absolute Nucleated RBC 0.000 (0.0-0.012) X10*3/uL Nucleated RBC % (auto) 0.0 (0.0-0.2) /100WBC Sodium 140 (135-145) mmol/L Potassium 3.7 (3.3-5.1) mmol/L Chloride 105 (96-108) mmol/L Carbon Dioxide 26 (22-29) mmol/L Anion Gap 13 (12-20) BUN 15 (9-16) mg/dL Creatinine 0.81 (0.5-1.4) mg/dL Estim Creat Clear Calc 104.5 Estimated GFR > 60 Random Glucose 91 (60-115) mg/dL Calcium 9.4 D (8.4-10.2) mg/dL Magnesium 2.0 (1.6-2.6) mg/dL Total Bilirubin 0.5 (0.0-1.0) mg/dL Direct Bilirubin 0.2 (0.0-0.5) mg/dL AST 30 (5-37) U/L ALT 35 (0-40) U/L Alkaline Phosphatase 65 (39-117) U/L Total Protein 7.5 (6.5-8.0) g/dL Albumin 4.2 (3.5-5.0) g/dL Lipase 30 (8-78) U/L Urine Color Yellow Urine Appearance Clear Urine pH 6.5 (5.0-9.0) Ur Specific [place] 1.020 (1.005-1.025) Urine Protein Negative (Neg-Trace) mg/dL Urine Glucose (UA) Negative (Negative) mg/dL Urine Ketones Negative (Negative) mg/dL Urine Blood Negative (Negative) Urine Nitrite Negative (Negative) Ur Leukocyte Esterase Negative (Negative) External Record Review External record reviewed: Outpatient record, Prior outpatient labs and Prior outpatient radiology Chronic Conditions Patient?s care impacted by: Other Asthma Medications Administered Discontinued Medications Generic Name Dose Route Start Last Admin Trade Name Freq PRN Reason Stop Dose Admin Al Hydroxide/Mg Hydroxide 30 ml 01/18/24 21:21 01/18/24 21:34 Magnesium Hydrox/Alum Hydrox 30 Ml Oral.Susp PO 01/18/24 21:22 30 ml ONCE ONE Administration Lidocaine HCl 10 ml 01/18/24 21:21 01/18/24 21:34 Lidocaine Hcl Viscous 2 % 15 Ml Solution MUCOUS MEM 01/18/24 21:22 10 ml ONCE ONE Administration Sucralfate 1 gm 01/18/24 21:21 01/18/24 21:34 Sucralfate Oral Suspension 1 Gm/10 Ml Oral.Susp PO 01/18/24 21:22 1 gm ONCE ONE Administration Critical Care Time Critical Care Time Critical Care Time: Yes Total Critical Care Time: 30 Attestation: I personally attest to this time spent taking care of the patient. Discharge Plan Discharge Clinical Impression: Gastritis Patient Disposition: Home, Self-Care Instructions: Gastritis (ED), Diet for Stomach Ulcers and Gastritis (ED), Nutrition Tips for Relief of Diarrhea (ED) Additional Instructions: 1. Resume all home medications as prescribed. 2. Please follow-up with your primary care doctor on Saturday/Saturday morning. Return to the ER for any worsening symptoms. Prescriptions: New omeprazole 40 mg capsule,delayed release(DR/EC) 40 mg PO DAILY Qty: 30 0RF No Action fluticasone propion-salmeterol [Advair Diskus] 250-50 mcg/dose blister with device 1 ea inhalation BID levofloxacin 500 mg Tablet 500 mg PO Q24H Qty: 5 0RF
[2024-01-18 19:12] VITALS: BP 128/95; PULSE 91; RESP 16; TEMP 36.4; O2SAT 96; BMI 26.0
[2024-01-18 19:42] LABS: MANUAL DIFF FLAG NO
[2024-01-18 19:54] LABS: Basophils Absolute Auto 0.1 X10*3/uL (0.0-0.2); Basophils Percent Auto 0.8 % (0-2); Eosinophils Absolute Auto 0.1 X10*3/uL (0.0-0.4); Hematocrit 44.3 % (42.0-52.0); Hemoglobin 15.4 g/dl (14.0-18.0); Imm Gran Abs Auto 0.02 X10*3/uL (0.00-0.03); Imm Gran Pct Auto 0.3 % (0.0-0.4); Lymphocytes Absolute Auto 1.4 X10*3/uL (1.2-4.9); Lymphocytes Percent Auto 22.8 % (20-40); Mean Corpuscular HGB Conc 34.8 g/dl (31.0-36.0); Mean Corpuscular Hemoglobin 29.1 pg (27.0-33.0); Mean Corpuscular Volume 83.6 fL (80.0-98.0); Mean Platelet Volume 10.2 fL (9.4-12.4); Monocytes Absolute Auto 0.5 X10*3/uL (0.1-1.2); Monocytes Percent Auto 8.6 % (2-11); Neutrophils Absolute Auto 3.9 x10*3/uL (2.0-8.3); Neutrophils Percent Auto 65.5 % (45-73); Platelet Count 286 X10*3/uL (160-400); Red Cell Distribution Width 13.1 % (11.0-16.0); White Blood Count 5.9 X10*3/uL (4.8-10.8)
[2024-01-18 19:55] LABS: Appearance Urine Clear; Color Urine Yellow; Glucose Urine UA Negative (Negative); Leukocyte Esterase Urine Negative (Negative); Nitrite Urine Negative (Negative); PH 6.5 (5.0-9.0); Urine Blood Negative (Negative); Urine Ketones Negative (Negative); Urine Protein Negative (Neg-Trace)
[2024-01-18 19:58] LABS: Alanine Aminotransferase 35 U/L (0-40); Albumin Level 4.2 g/dL (3.5-5.0); Alkaline Phosphatase 65 U/L (39-117); Anion Gap 13 (12-20); Aspartate Amino Transferase 30 U/L (5-37); Bilirubin Direct 0.2 mg/dL (0.0-0.5); Bilirubin Total 0.5 mg/dL (0.0-1.0); Blood Urea Nitrogen 15 mg/dL (9-16); Calcium 9.4 mg/dL (8.4-10.2); Carbon Dioxide 26 mmol/L (22-29); Chloride 105 mmol/L (96-108); Creatinine Clr Calc Pharmacy 104.5; Estimated Glomerular Filt Rate > 60; Glucose Random 91 mg/dL (60-115); Lipase 30 U/L (8-78); Potassium 3.7 mmol/L (3.3-5.1); Sodium 140 mmol/L (135-145); Total Protein 7.5 g/dL (6.5-8.0)
[2024-01-18] MEDS: Sucralfate Oral Suspension 1 GM/10 ML ORAL.SUSP PO (21:34)
[2024-01-18] MEDS: Magnesium Hydrox/Alum Hydrox 30 ML ORAL.SUSP PO (21:34)
[2024-01-18] MEDS: Lidocaine HCl Viscous 2 % 15 ML SOLUTION 10 ML MUCOUS MEM (21:34)
[2024-01-18 23:17] VITALS: BP 115/84; PULSE 85; RESP 18; O2SAT 94
== END 2024-01-18 23:24 | disposition home or self-care (01) ==
PROVIDERS: Physician Assistant; Emergency Provider Student in an Organized Health Care Education/Training Program
DX: K29.70 Gastritis, unspecified, without bleeding (principal)
CPT/HCPCS: 36415; 80048; 80076; 81003; 83690; 83735; 85025; 99283; 99284

== ENCOUNTER 2024-02-26 08:12 | Outpatient (REF) | payer OTHER, SELFPAY ==
--- NOTE | ~2024-02-26 | CT_ITS ---
EXAMINATION: CT ENTEROGRAPHY ABDOMEN AND PELVIS WITH CONTRAST CLINICAL INFORMATION: Noninfected gastroenteritis and colitis. COMPARISON: 01/04/2024 TECHNIQUE: Study performed with oral VoLumen (1500 mL) and 500 mL of water to distend the abdomen. The patient was injected with 85 mL Omnipaque 350 intravenous contrast which was administered without adverse effect. Coronal and sagittal reformatted images were obtained at the technologist's workstation. This CT examination was performed using dose optimization techniques as appropriate, variously including the following: *Automated exposure control *Adjustment of mA and/or kV according to patient size (this includes techniques or standardized protocols for targeted exams where dose is matched to indication/reason for exam; i.e. extremities or head) *Use of iterative reconstruction technique DLP: 340 mGy-cm FINDINGS: GASTROINTESTINAL FINDINGS: Stomach: Satisfactorily distended and unremarkable in appearance. Small intestine: There is wall thickening of the small bowel loops in the left midabdomen with mesenteric hyperemia and subcentimeter mesenteric lymph nodes. Large intestine: There is moderate fecal retention in the colon. No focal wall thickening. The appendix is within normal limits. No perirectal stranding. Additional findings: No abdominal abscess or fistulous tract demonstrated. ABDOMINAL AND PELVIC CT FINDINGS: Liver, gallbladder, biliary tract: The liver is normal in size and contour. No focal hepatic lesion. No biliary ductal dilatation. The gallbladder is unremarkable. Pancreas: No ductal dilatation. Spleen: Not enlarged. Adrenal glands and kidneys: No adrenal mass. The kidneys are symmetric in size and enhancement. No hydronephrosis or perinephric fluid collection. Ureters and bladder: Unremarkable. Lymphovascular structures: No bulky lymphadenopathy. Normal caliber abdominal aorta. Pelvic viscera: Unremarkable. Bones: No destructive bone lesions. Lung bases: No pleural or pericardial effusion. CT/CT enterography IMPRESSION: Wall thickening of the small bowel loops in the left midabdomen with mesenteric hyperemia and subcentimeter mesenteric lymph nodes. Infectious and inflammatory etiologies should be considered.
[2024-02-26] MEDS: iohexoL 350 MG/ML 100 ML INFUS..BTL 85 ML IV (10:09)
[2024-02-26] MEDS: Sorbitol/Mannit/Xanth Imaging 500 ML LIQUID 1500 ML PO (10:09)
== END 2024-02-26 08:13 | disposition home or self-care (01) ==
LOC: HO.CT 08:12
PROVIDERS: PCP Pediatrics; Visit Provider Internal Medicine
DX: K52.9 Noninfective gastroenteritis and colitis, unspecified (principal)
CPT/HCPCS: 74177; Q9967

== ENCOUNTER 2024-03-06 13:23 | Outpatient (AMB) | payer OTHER, SELFPAY ==
--- NOTE | 2024-03-06 13:24 | A.OFFVIS_ITS ---
Intake Vital Signs 03/06/24 13:25 Height 5 ft 4 in Weight 147 lb 11.355 oz BMI 25.4 BP 119/80 Blood Pressure Location Lt brachial Position Sitting Pulse 77 Intake Visit Reasons: Follow up CT scan results Intake Note: Reza presents in the office as a follow up CT scan results. CC: He states that he is here for results today - he still does not feel the greatest and he went back to the ED and he was diagnosed with gastritis. Allergies No Known Allergies Allergy (Verified 03/06/24 13:25) HPI HPI Comments History of Present Illness Details This is a 38-year-old gentleman with hx of anal ASCUS who is here for follow up after hospitalisation 01/2024 for acute ileitis Recap: Admitted to the hospital in early January for sudden onset abdominal pain and diarrhea after having food from outside. CT abdomen pelvis IV contrast showed distal terminal ileum wall thickening with proximal dilation. Had a significant improvement with antibiotic therapy alone. [facility] IBD panel was negative. Clinical assessment was consistent with acute infectious enteritis. Patient was advised to have a CT enterography done as outpatient to ensure the small bowel changes have resolved. No fam hx of IBD or CRC. Does not smoke or drink. No sick contacts. 03/06/24: CT enterography completed last week and results as below. Reports central abd discomfort rayne after eating which is assoc with loose stools 3/4 day. No blood in stool. Has urgency and tenesmus. Has lost 20 lbs since admission. No night time sx. CT enterography: Stomach: Satisfactorily distended and unremarkable in appearance. Small intestine: There is wall thickening of the small bowel loops in the left midabdomen with mesenteric hyperemia and subcentimeter mesenteric lymph nodes. Large intestine: There is moderate fecal retention in the colon. No focal wall thickening. The appendix is within normal limits. No perirectal stranding. Additional findings: No abdominal abscess or fistulous tract demonstrated. [facility] Medical History Asthma Family History (Updated 03/06/24 @ 13:28 by LAVELLE Corcoran) Maternal Grandfather Throat cancer Maternal Aunt Cervical cancer Social History Household Members: None Housing: Apartment Alcohol intake: never Patient Tobacco Use Status: Never used Tobacco service: No Review of Systems Const All systems reviewed & are unremarkable except as noted in HPI and below Physical Exam Vital Signs: Last Vital Signs Pulse 77 03/06/24 13:25 BP 119/80 03/06/24 13:25 BMI result Body Mass Index 25.4 Assessment & Plan Assessment & Plan (1) Ileitis: Code(s): K52.9 - Noninfective gastroenteritis and colitis, unspecified (2) Abdominal pain: Code(s): R10.9 - Unspecified abdominal pain Qualifiers: Abdominal location: generalized Qualified Code(s): R10.84 - Generalized abdominal pain (3) Chronic diarrhea: Code(s): K52.9 - Noninfective gastroenteritis and colitis, unspecified (4) Weight loss: Code(s): R63.4 - Abnormal weight loss Plan Constellation of symptoms outlined above suspicious for underlying Crohn's disease, especially given persistent thickened small bowel loops on enterography that was performed at least 8 weeks after his hospital admission. Reviewed the despite a negative [facility] IBD panel, will need luminal evaluation for diagnosis and management. Plan: -push enteroscopy and colonoscopy to be set up in the next few weeks -split PEG prep instructions reviewed and handout given -labs ordered to check for IBD, as well as celiac, hyperthyroidism. -in addition, T spot and hep serologies ordered in anticipation of biologic if needed -of note, patient also sees Dr. Daly at [facility] due to history of anal ascus. Reviewed to KEEP his upcoming appt as a colo does not replace the high def anoscopy exam. Follow-up after endoscopy Orders: Orders Calprotectin, Fecal Today K52.9 - Noninfective gastroenteritis and colitis, unspecified Immunoglobulin A Today K52.9 - Noninfective gastroenteritis and colitis, unspecified Hepatitis A IgG Today K52.9 - Noninfective gastroenteritis and colitis, unspecified Hepatitis B Surface Antibody Today K52.9 - Noninfective gastroenteritis and colitis, unspecified Hepatitis B Surface Antigen Today K52.9 - Noninfective gastroenteritis and colitis, unspecified C Reactive Protein Today K52.9 - Noninfective gastroenteritis and colitis, unspecified TSH reflex Free T4 Today K52.9 - Noninfective gastroenteritis and colitis, unspecified Transglutaminase IgA Today K52.9 - Noninfective gastroenteritis and colitis, unspecified Hepatitis B Core Antibody Today K52.9 - Noninfective gastroenteritis and colitis, unspecified Hepatitis C Antibody Today K52.9 - Noninfective gastroenteritis and colitis, unspecified T Spot TB Today K52.9 - Noninfective gastroenteritis and colitis, unspecified Medications: New peg 3350-electrolytes 236-22.74-6.74 -5.86 gram (Golytely) as per split prep instructions, until fecal effluent is clear 240 mL PO Q10M 4,000 mL 0RF colonoscopy Coding Level of Care Code Est Pt Level 4 (56346) Diagnoses Ileitis K52.9 Abdominal pain R10.84 Abdominal location: generalized Chronic diarrhea K52.9 Weight loss R63.4
[2024-03-06 13:25] VITALS: BP 119/80; PULSE 77; BMI 25.4
== END 2024-03-06 14:17 | disposition home or self-care (01) ==
PROVIDERS: Visit Provider Internal Medicine
DX: K52.9 Noninfective gastroenteritis and colitis, unspecified (principal); R10.84 Generalized abdominal pain; R63.4 Abnormal weight loss
CPT/HCPCS: 99214

== ENCOUNTER 2024-03-06 13:23 | Outpatient (REF) | payer OTHER, SELFPAY ==
[2024-03-06 16:40] LABS: C Reactive Protein < 0.10 mg/dL (< or = 0.50)
[2024-03-06 16:51] LABS: TSH reflex Free T4 0.95 uIU/mL (0.32-4.0)
[2024-03-07 10:10] LABS: Hepatitis A Antibody IgG Nonreactive (Nonreactive); ~Hepatitis A Antibody IgG 0.36 S/CO (0.00-0.99)
[2024-03-07 10:13] LABS: HBS Num1 256.86 mIU/mL (0-7.99); HBc Num1 0.05 S/CO (0.00-0.79); HBsAGNum1 0.38 S/CO (0.00-0.99); Hepatitis B Core Antibody Nonreactive (Nonreactive); Hepatitis B Surface Antigen Negative (Negative); ~HepC Num1 0.23 S/CO (0.00-0.79); ~Hepatitis B Surface Antibody REACTIVE (Nonreactive); ~Hepatitis C Antibody Nonreactive (Nonreactive)
[2024-03-08 21:23] LABS: TS Negative Control Passed; TS Panel A 2; TS Panel B 0; TS Positive Control Passed; TSpotTB Negative (Negative)
[2024-03-09 18:34] LABS: Immunoglobulin A 212 mg/dL (47-310)
[2024-03-10 22:03] LABS: Transglutaminase IgA <1.0 U/mL
== END 2024-03-06 13:24 | disposition home or self-care (01) ==
LOC: HO.LAB 13:23
PROVIDERS: PCP Pediatrics; Visit Provider Internal Medicine
DX: K52.9 Noninfective gastroenteritis and colitis, unspecified (principal); R10.84 Generalized abdominal pain; R63.4 Abnormal weight loss
CPT/HCPCS: 36415; 82784; 84443; 86140; 86364; 86481; 86704; 86706; 86708; 86803; 87340

== ENCOUNTER 2024-03-12 10:59 | Day surgery (SDC) | payer OTHER, SELFPAY ==
--- NOTE | 2024-03-11 10:03 | P.CONAN_ITS ---
Documented by User: Mariel Gonzalez NP 03/11/24 10:03 HPI - Anesthesia Eval Consult details Narrative: 38yo M for Colonoscopy, push enteroscopy [facility] Active Problems Active Problems: All Active Problems Weight loss (Acute) Chronic diarrhea (Acute) Asthma (Acute) Ileitis (Acute) Abdominal pain (Acute) Past Medical History Medical History Asthma Family History Family History (Updated 03/06/24 @ 13:28 by LAVELLE Corcoran) Maternal Grandfather Throat cancer Maternal Aunt Cervical cancer Social History Social History Household Members: None Housing: Apartment Alcohol intake: never Patient Tobacco Use Status: Never used Tobacco Are you DNR?: No Advance Directives: No Advance Directives Information Provided: Yes Nutrition Risks: No Nutritional Risk service: No Meds Allergies Allergy/AdvReac Type Severity Reaction Status Date / Time No Known Allergies Allergy Verified 03/12/24 11:59 Home Medications ?Medication ?Instructions ?Recorded ?Confirmed ?Last Taken ?Type fluticasone 250 mcg-salmeterol 50 1 ea inhalation BID 01/04/24 03/12/24 Unknown History mcg/dose blistr powdr for inhalation (Advair Diskus) Assessment and Plan Assessment Anesthesia Assessment: Chart Reviewed Documented by User: Vadim Perez MD 03/12/24 12:03 [facility] Past Medical History Medical History Asthma Family History Family History (Updated 03/06/24 @ 13:28 by LAVELLE Corcoran) Maternal Grandfather Throat cancer Maternal Aunt Cervical cancer Family history of problems with anesthesia: No Surgical History History of Problems with Anesthesia: No Social History Social History Household Members: None Housing: Apartment Alcohol intake: never Patient Tobacco Use Status: Never used Tobacco Are you DNR?: No Advance Directives: No Advance Directives Information Provided: Yes Nutrition Risks: No Nutritional Risk service: No Meds Allergies Allergy/AdvReac Type Severity Reaction Status Date / Time No Known Allergies Allergy Verified 03/12/24 11:59 Home Medications ?Medication ?Instructions ?Recorded ?Confirmed ?Last Taken ?Type fluticasone 250 mcg-salmeterol 50 1 ea inhalation BID 01/04/24 03/12/24 Unknown History mcg/dose blistr powdr for inhalation (Advair Diskus) Exam Airway Mallampati Class: I TM Dist: >3cm Neck ROM: Full Loose/Missing/Broken Teeth: No Heart: rrr Lungs: cta Assessment and Plan Assessment Anesthesia Assessment: Anesthesia Plan Discussed Final Anesthetic Review Family History of Problems with Anesthesia: No History of Problems with Anesthesia: No NPO: Yes ASA Class: I Final Preanesthetic Review: No Changes in Pt Med Stat, Meds/Allgs Chart Reviewed, Consent Obtained/Reviewed and Anes Risks/Benef Reviewed Patient Risk: Low Procedure Risk: Intermediate Anesthetic Plan Anesthetic Plan: MAC: Disposition: Standard PACU
[2024-03-12] MEDS: Lactated Ringers 1,000 ML 100 ML IVCONT (12:11)
[2024-03-12 12:23] VITALS: BP 136/90; PULSE 78; RESP 18; TEMP 36.7; O2SAT 97; BMI 25.1
--- NOTE | 2024-03-12 12:58 | P.HPSUR_ITS ---
Pre-Procedural Eval Section A - 24 Hr Update-Section A only Date of Service: 03/12/24 Section B - Complete if H&P > 30 days Chief Complaint: Noninfective gastroenteritis and colitis, unspecif Relevant Family History (Specify if Yes): No Relevant Social History: None Present Medications: see Short Stay Collaborative assessment Medical History: Significant History (asthma ) History of Previous Operations: No relevant previous surgery Allergies: Allergies Allergy/AdvReac Type Severity Reaction Status Date / Time No Known Allergies Allergy Verified 03/12/24 11:59 Review of Systems Sugical H&P ROS: Negative: Constitution, Cardiovascular, Respiratory, Neuro logical, Psychiatric, Hem-Onc, Allergic/Immunologic, Gastrointestinal, Genitourinary, Musculoskeletal, Integumentary, Endocrine and Eyes/Ears/Nose/Throat Exam Surgical H&P Exam: Normal: HEENT, Normal: Heart, Normal: Lungs, Normal: Extremities, Normal: Abdomen, Normal: Skin and Normal: Neurological Plan Diagnosis/Plan: Unchanged I have reviewed the history and physical and performed a pertinent physical examination on my patient. No changes have occurred unless specified. Time Spent With Patient Time: Total time managing care of this patient today ____ minutes.
--- NOTE | 2024-03-12 13:48 | W.PM.OPN ---
Operative Note Operative Note Date of Service: 03/12/24 Narrative: Operative Information Procedure Description: EGD, Colonoscopy Indication: abn imaging, enteritis Anesthesia: MAC FLEXIBLE TRANSORAL UPPER GASTROINTESTINAL ENDOSCOPY AND COLONOSCOPY PROCEDURE NOTE UPPER ENDOSCOPY Consent: Indications for the procedure and potential complications of bleeding, perforation, reaction to medications and missed diagnosis were discussed with the patient and informed consent was obtained. Instrument: Olympus GIF H 190 J mid size upper endoscope Monitoring: Vital signs and clinical assessment, continuous EKG monitoring, Pulse oximetry, Carbon Dioxide monitoring and blood pressure monitoring were done throughout the procedure. Procedure: The patient was placed in the left lateral decubitis position and pre-procedure medications were administered and a bite block was placed. The endoscope was inserted into the mouth and advanced under direct vision to the jejunum. A careful inspection was made as the upper endoscope was withdrawn including a retroflexed examination of the proximal stomach; Findings and interventions are described below. Findings: Larynx:normal Esophagus: GE junction at 40 cm, diaphragm hiatus at 43 cm, consistent with 3 cm sliding hiatal hernia, bx taken from GEJ with mild esophagitis noted Stomach: Normal mucosa. Biopsies were obtained. Grade 2 flap valve on retroflexed examination of the cardia. Duodenum and proximal jejunum: Normal, bx taken Intervention: Biopsies as noted above, COLONOSCOPY Instrument: Olympus variable stiffness pediatric scope 190L Colonoscopy Monitoring: Vital signs and clinical assessment, continuous EKG monitoring, Pulse oximetry, Carbon Dioxide monitoring and blood pressure monitoring were done throughout the procedure. Colon withdrawal time was 12 minutes. Procedure: The patient was placed in the left lateral decubitis position and pre-procedure medications were administered. After a digital rectal examination of the ano-rectum, the video colonoscope was inserted into the rectum and advanced through the colon to the cecum/TI. The colonoscope was slowly withdrawn in a retrograde panoramic fashion and the colon mucosa was carefully examined including a retroflexed view of the rectum. Findings and interventions are described below. Procedure Difficulty:moderate Findings: Terminal Ileum-normal, bx taken Bx taken from right and left colon in separate jars Cecum:normal Ascending Colon: normal Transverse Colon -normal Descending Colon:normal Sigmoid Colon: normal Rectum: Retroflexion with small internal hemorrhoids, grade I Anorectum - normal Colon preparation: [place] Bowel Preparation Scale Right colon; 2 Transverse colon: 2 Left colon; 1-2 (0 = Unprepared colon segment with mucosa not seen due to solid stool that cannot be cleared. 1 = Portion of mucosa of the colon segment seen, but other areas of the colon segment not well seen due to staining, residual stool and/or opaque liquid. 2 = Minor amount of residual staining, small fragments of stool and/or opaque liquid, but mucosa of colon segment seen well. 3 = Entire mucosa of colon segment seen well with no residual staining, small fragments of stool or opaque liquid) Impression and Post Procedure Diagnosis: Endoscopy Findings: esophagitis hiatal hernia Colonoscopy Findings: internal hemorrhoids Plan: Await Pathology results Repeat Colonoscopy aged 45 or earlier if clinically indicated High fiber diet leaflet avoid straining at stool, epsom salts and sitz bath, anusol supps or cream\ if bx neg can consider capsule endoscopy Above findings were reviewed with the patient and relevant handouts were provided if indicated.
[2024-03-12 14:00] VITALS: BP 92/61; PULSE 80; RESP 12; TEMP 36.1; O2SAT 97
[2024-03-12 14:15] VITALS: BP 117/72; PULSE 102; RESP 20; O2SAT 98
[2024-03-12 14:30] VITALS: BP 116/78; PULSE 102; RESP 18; O2SAT 99
[2024-03-12 14:45] VITALS: BP 125/73; PULSE 99; RESP 20; TEMP 36.1; O2SAT 99
== END 2024-03-12 15:30 | disposition home or self-care (01) ==
PROVIDERS: PCP Pediatrics; Visit Provider Internal Medicine Gastroenterology
PROC: 0DJD8ZZ Inspection of Lower Intestinal Tract, Via Natural or Artificial Opening Endoscopic (ICD-10-PCS; CPT 45378; principal; 2024-03-12 16:30)
DX: K52.9 Noninfective gastroenteritis and colitis, unspecified (principal); K64.0 First degree hemorrhoids; R10.84 Generalized abdominal pain; R63.4 Abnormal weight loss; Z68.25 Body mass index [BMI] 25.0-25.9, adult; K44.9 Diaphragmatic hernia without obstruction or gangrene; K20.80 Other esophagitis without bleeding; J45.909 Unspecified asthma, uncomplicated; Z79.51 Long term (current) use of inhaled steroids
CPT/HCPCS: 45380; 43239; 88305; 88313; 88342; J2704

== ENCOUNTER → 2024-03-12 10:59 | Outpatient (BNV) | payer OTHER, SELFPAY | PROVIDERS: PCP Pediatrics; Visit Provider Internal Medicine Gastroenterology | DX: K20.90 Esophagitis, unspecified without bleeding (principal); K44.9 Diaphragmatic hernia without obstruction or gangrene; K52.9 Noninfective gastroenteritis and colitis, unspecified; K64.8 Other hemorrhoids | CPT/HCPCS: 43239; 45380 ==

== ENCOUNTER 2025-02-06 16:52 | Emergency (ER) | payer BC, SELFPAY ==
[2025-02-06 17:16] VITALS: BP 144/98; PULSE 79; RESP 20; TEMP 37; O2SAT 97; BMI 22.6
--- NOTE | 2025-02-06 17:23 | ED.SKABFB ---
HPI - Skin/Abscess/Foreign Bdy General Chief complaint: Skin/Abscess/Foreign Body Stated complaint: Body rash Time Seen by Provider: 02/06/25 23:16 Source: patient Limitations: no limitations History of Present Illness ED Provider: Connie Richards PA-C HPI narrative: 39-year-old male presents with rash for 1 year. The rash is dry and pruritic, has worsened this winter. Patient has lesions over his face, torso, upper and lower extremities. In addition, patient is requesting to be tested for HIV, he states he thinks he may have had a recent exposure. To note, the patient takes PrEP. Related Data Home Medications ?Medication ?Instructions ?Recorded ?Confirmed fluticasone 250 mcg-salmeterol 50 1 ea inhalation BID 01/04/24 03/12/24 mcg/dose blistr powdr for inhalation (Advair Diskus) Previous Rx's ?Medication ?Instructions ?Recorded methylprednisolone 4 mg tablets in 4 mg PO QAM #21 ea 02/07/25 a dose pack (Medrol (Fernando)) Allergies Allergy/AdvReac Type Severity Reaction Status Date / Time No Known Allergies Allergy Verified 02/06/25 17:19 Review of Systems Review of Systems: Yes all other systems are reviewed and are negative Constitutional: Constitutional: Denies fatigue and Denies fever(s) Cardiovascular: Cardiovascular: Denies chest pain and Denies dyspnea Respiratory: Respiratory: Denies dyspnea Gastrointestinal: Gastrointestinal: Denies abdominal pain, Denies nausea and Denies vomiting Integumentary/Breasts: Skin/Breast: Reports pruritus, Reports erythema and Reports rash Endocrine: Endocrine: Denies fatigue PMFSH Past Medical History Attestation statement: The following information was validated with the patient. Medical History (Updated 02/07/25 @ 01:01 by MURIEL Glaser) Obstructive sleep apnea Asthma Surgical History (Updated 03/12/24 @ 12:24 by Heidi Mora RN) Hx of colonoscopy Family History Family History (Updated 03/06/24 @ 13:28 by LAVELLE Corcoran) Maternal Grandfather Throat cancer Maternal Aunt Cervical cancer Social History Social History Household Members: None Housing: Apartment Alcohol intake: never Patient Tobacco Use Status: Never used Tobacco Advance Directives: No Advance Directives Information Provided: No service: No Physical Exam Vital Signs: Vital Signs: Last Vital Signs Temp 97.9 F 02/06/25 23:17 Pulse 72 02/06/25 23:17 Resp 18 02/06/25 23:17 BP 132/84 02/06/25 23:17 Pulse Ox 96 02/06/25 23:17 O2 Del Method Room Air 02/06/25 23:17 BMI result Body Mass Index 22.6 Const: Other: Alert Orientation/consciousness: patient oriented x3 Resp: Effort & Inspection: normal respiratory effort Cardio: Other: Normal peripheral perfusion Skin: Other: Patient has mildly erythematous lesions that vary in size and shape, the rashes dry with a overlying skin flaking, rashes on the face, torso, back, upper and lower extremities. Neuro: General: patient oriented x3, gait normal, no focal motor deficits and CN's II-XI intact bilaterally Psych: Other: Cooperative Course Course Course Narrative: This is a Rapid Medical Examination (RME) performed by Samira Shoemaker PA-C in triage. Full HPI, ROS, assessment and treatment plan per primary provider in the Main ED. 39 yo male here for eval of erythematous rash to face/ chest/ arms x1 yr. has appointment w/ derm in june. symptoms worse in winter. trialed OTC ointments/ skin care with improvement. admits these areas are burning/ itchy. requesting HIV testing, feels like he was exposed however not sure. denies penile discharge/lesions. ?ezcema Plan: labs Medical Decision Making Medical Decision Making MDM Narrative: 39-year-old male presents with rash for 1 year. The rash is dry and pruritic, has worsened this winter. Patient has lesions over his face, torso, upper and lower extremities. In addition, patient is requesting to be tested for HIV, he states he thinks he may have had a recent exposure. To note, the patient takes PrEP. No chronic issues History: Per patient I have considered the following differential diagnoses: Eczema, shingles, bedbugs, scabies, contact dermatitis Plan: The patient's rash is consistent with a eczema, it makes it so that it has worsened during the winter given it has been very cold and dry. We will send with home care instructions, given the rashes diffuse we will place on a steroid taper. The patient was requesting testing for HIV, I have relayed to him that results will not return overnight, I will contact him within the next 1-2 days. Screening labs were obtained from triage I have independently reviewed the following tests: Labs: No leukocytosis, not anemic, no electrolyte abnormality noted Lab Data 02/06/25 17:31 02/06/25 17:31 Labs: Lab Results 02/06/25 Range/Units 17:31 WBC 8.7 (4.8-10.8) X10*3/uL RBC 5.72 (4.60-5.80) X10*6/uL Hgb 16.6 (14.0-18.0) g/dl Hct 46.3 (42.0-52.0) % MCV 80.9 (80.0-98.0) fL MCH 29.0 (27.0-33.0) pg MCHC 35.9 (31.0-36.0) g/dl RDW 13.1 (11.0-16.0) % Plt Count 319 (160-400) X10*3/uL MPV 10.3 (9.4-12.4) fL Immature Gran % (Auto) 0.3 (0.0-0.4) % Neut % (Auto) 59.4 (45-73) % Lymph % (Auto) 29.9 (20-40) % [place] % (Auto) 6.7 (2-11) % Eos % (Auto) 2.6 (0-4) % Baso % (Auto) 1.1 (0-2) % Lymph # (Auto) 2.6 (1.2-4.9) X10*3/uL [place] # (Auto) 0.6 (0.1-1.2) X10*3/uL Eos # (Auto) 0.2 (0.0-0.4) X10*3/uL Baso # (Auto) 0.1 (0.0-0.2) X10*3/uL Abs Immat Gran (auto) 0.03 (0.00-0.03) X10*3/uL Absolute Neuts (auto) 5.2 (2.0-8.3) x10*3/uL Absolute Nucleated RBC 0.000 (0.0-0.012) X10*3/uL Nucleated RBC % (auto) 0.0 (0.0-0.2) /100WBC Sodium 141 (135-145) mmol/L Potassium 3.4 (3.3-5.1) mmol/L Chloride 105 (96-108) mmol/L Carbon Dioxide 25 (22-29) mmol/L Anion Gap 14 (12-20) BUN 10 (9-16) mg/dL Creatinine 0.83 (0.5-1.4) mg/dL Estim Creat Clear Calc 118.4 Estimated GFR > 60 Random Glucose 76 (60-115) mg/dL Calcium 9.4 (8.4-10.2) mg/dL Magnesium 2.0 (1.6-2.6) mg/dL Total Bilirubin 0.6 (0.0-1.0) mg/dL AST 27 (5-37) U/L ALT 36 (0-40) U/L Alkaline Phosphatase 69 (39-117) U/L Total Protein 8.2 H (6.5-8.0) g/dL Albumin 4.6 (3.5-5.0) g/dL Discharge Plan Discharge Clinical Impression: Eczema Patient Disposition: Home, Self-Care Instructions: Cold Compress or Soak (ED) Additional Instructions: You are being treated for eczema. See home care instructions. You should use a moisturizing body wash, such as Aveeno or Cetaphil products. When bathing, use cool / warm water instead of hot water. Try to minimize the frequency of bathing, frequent water exposure can further dehydrate the skin. Hydration is rehman, use the Cetaphil or Aveeno body lotion specific for eczema. Use the Medrol Dosepak as directed, this is a steroid taper. You are being screened for HIV, the results should return within 1-2 days, I will contact you at home with the results. Prescriptions: New methylprednisolone [Medrol (Fernando)] 4 mg tablets,dose pack 4 mg PO QAM Qty: 21 0RF Rx Instructions: Use the steroid taper per package instructions No Action fluticasone propion-salmeterol [Advair Diskus] 250-50 mcg/dose blister with device 1 ea inhalation BID Print Language: Sammarinese
[2025-02-06 17:38] LABS: MANUAL DIFF FLAG NO
[2025-02-06 17:40] LABS: Basophils Absolute Auto 0.1 X10*3/uL (0.0-0.2); Basophils Percent Auto 1.1 % (0-2); Eosinophils Absolute Auto 0.2 X10*3/uL (0.0-0.4); Eosinophils Percent Auto 2.6 % (0-4); Hematocrit 46.3 % (42.0-52.0); Hemoglobin 16.6 g/dl (14.0-18.0); Imm Gran Abs Auto 0.03 X10*3/uL (0.00-0.03); Imm Gran Pct Auto 0.3 % (0.0-0.4); Lymphocytes Absolute Auto 2.6 X10*3/uL (1.2-4.9); Lymphocytes Percent Auto 29.9 % (20-40); Mean Corpuscular HGB Conc 35.9 g/dl (31.0-36.0); Mean Corpuscular Volume 80.9 fL (80.0-98.0); Mean Platelet Volume 10.3 fL (9.4-12.4); Monocytes Absolute Auto 0.6 X10*3/uL (0.1-1.2); Monocytes Percent Auto 6.7 % (2-11); Neutrophils Absolute Auto 5.2 x10*3/uL (2.0-8.3); Neutrophils Percent Auto 59.4 % (45-73); Platelet Count 319 X10*3/uL (160-400); Red Blood Count 5.72 X10*6/uL (4.60-5.80); Red Cell Distribution Width 13.1 % (11.0-16.0); White Blood Count 8.7 X10*3/uL (4.8-10.8)
[2025-02-06 17:55] LABS: Alanine Aminotransferase 36 U/L (0-40); Albumin Level 4.6 g/dL (3.5-5.0); Alkaline Phosphatase 69 U/L (39-117); Anion Gap 14 (12-20); Aspartate Amino Transferase 27 U/L (5-37); Bilirubin Total 0.6 mg/dL (0.0-1.0); Blood Urea Nitrogen 10 mg/dL (9-16); Calcium 9.4 mg/dL (8.4-10.2); Carbon Dioxide 25 mmol/L (22-29); Chloride 105 mmol/L (96-108); Creatinine Clr Calc Pharmacy 118.4; Estimated Glomerular Filt Rate > 60; Glucose Random 76 mg/dL (60-115); Potassium 3.4 mmol/L (3.3-5.1); Sodium 141 mmol/L (135-145); Total Protein 8.2 g/dL (6.5-8.0)
[2025-02-06 23:17] VITALS: BP 132/84; PULSE 72; RESP 18; TEMP 36.6; O2SAT 96
[2025-02-07 01:10] VITALS: BP 132/84; PULSE 72; RESP 18; TEMP 36.6; O2SAT 96
[2025-02-08 03:39] LABS: HIV AB/AG Nonreactive (Nonreactive); HIV Num 1 0.07 S/CO (0.00-0.99)
== END 2025-02-07 01:16 | disposition home or self-care (01) ==
PROVIDERS: Physician Assistant Medical; Emergency Provider Emergency Medicine Emergency Medical Services; PCP Pediatrics
DX: L30.9 Dermatitis, unspecified (principal)
CPT/HCPCS: 36415; 80053; 83735; 85025; 87389; 99283